=== PATIENT | male | born 1960 | race Caucasian/White ===

== ENCOUNTER 2022-10-09 08:43 | Emergency (ER) | payer OTHER ==
[2022-10-09 09:01] VITALS: RESP 18; BMI 35.4
[2022-10-09] MEDS ORDERED: HYDROCHLOROTHIAZIDE 25 MG TABLET (FP) PO ONE (09:06)
[2022-10-09] MEDS ORDERED: amLODIPine BESYLATE 10 MG TABLET (FP) PO ONE (09:06)
[2022-10-09] MEDS ORDERED: VALSARTAN 160 MG TABLET PO ONE (09:06)
[2022-10-09] MEDS ORDERED: amLODIPine BESYLATE 5 MG TABLET (FP) ONE (09:09)
[2022-10-09] MEDS ORDERED: HYDROCHLOROTHIAZIDE 25 MG TABLET (FP) ONE (09:09)
[2022-10-09 10:11] VITALS: PULSE 66; TEMP 98
[2022-10-09 13:14] VITALS: BP 180/90
== END 2022-10-09 13:01 | disposition home or self-care (01) ==
LOC: FER 08:43
DX: I10 Essential (primary) hypertension (principal)
CPT/HCPCS: 99283-25